=== PATIENT | female | born 1970 | race Hispanic/Latino ===

== ENCOUNTER 2024-07-07 12:56 | Emergency (ER) | payer MEDICARE, OTHER, SELFPAY ==
[2024-07-07 13:01] VITALS: BP 128/90
--- NOTE | 2024-07-07 14:46 | ED.GENMED ---
History of Present Illness
General
Chief Complaint: Musculo-Skeletal Complaint
Source: patient
Exam Limitations: none
Time Seen by Provider: 07/07/24 14:17
Nursing documentation reviewed up to this point in time: agreed with
History of Present Illness
History of Present Illness:
pt is a 53 y/o F with h/o htn, hld ,svt, clon ca
here with R elbow pain anteriorly after lifting heave 5 gallon water jug at home
she felt a pop in her AC region
she since has had a lot of pain with elbow movement
she also feels somep ain anteriorly in her shoulder
no numbness/tinglingw/eakness
no significant swelling
Past History
Past History
ED Past Medical History: Arrthythmia (SVT), HTN, NIDDM and Psychiatric
ED Past Surgical History: Cholecystectomy and Gynecological
Social History
Tobacco: Former smoker
Alcohol: None
Drug: None
Personal: Other
Living: with family
Employment: Employed
Family History
Family History: CAD and Sudden ([place] - 2 brothers)
Review of Systems
Review of Systems
Allergies reviewed?: Yes
All Other Systems: Not applicable
Phy Exam
Physical Exam
Physical Exam:
GENERAL: Alert , in no apparent distress, comfortable at rest
HEAD: NCAT
CV 2+ pulses
NEUROLOGICAL: Alert and oriented, no focal neuro deficits, , 5/5 strength, sensation intact, ambulation
SKIN: Warm and dry,
MUSCULOSKELETAL: R arm normal inspetion
compartment sfot
tenderness R ac area
no obvious marlyn deformity
painful elbow extension and pronation
PSYCH: Normal and appropriate interaction.
Course
Orders/Labs/Results
Orders:
Orders
07/07/24 13:05
CR Elbow - Right Min 3 Views Urgent
Comment:
Reason For Exam: pain, dec ROM
07/07/24 14:47
Sling Right-Treatment ONCE
Oxycodone/Acetaminophen [Percocet 5/325] 1 tablet PO NOW STA
Vital Signs
Initial and Last Documented VS:
Initial Vital Signs
Temp Pulse Resp BP Pulse Ox
36.7 C 76 16 128/90 99
07/07/24 13:01 07/07/24 13:01 07/07/24 13:01 07/07/24 13:01 07/07/24 13:01
Last Documented Vital Signs
Temp Pulse Resp BP Pulse Ox
36.7 C 76 16 128/90 99
07/07/24 13:01 07/07/24 13:01 07/07/24 13:01 07/07/24 13:01 07/07/24 13:01
MDM/Problems Addressed
Differential Diagnosis Includes:
biceps tendon rupture, ac strain
MDM/Problems Addressed:
53 y/o F was lifting a heavy 5 gallon water jug and felt pop in her anterior R elbow
she doesn't have marlyn deformity but i think she may have biceps tendon injury; she has never seen ortho so i wanted to reach out so that she can have f/u
her xray was neg, indep reviewed; she has normal neuro/vascular exam
spoke with dr. panchal who will see her in the office this week
*Critical Care Note
Total Time (30-74mins, 75-104mins- exclusive of procedures): Not Applicable
ED Attending Note
-
Portions of this chart may have been created with voice recognition software.� Occasional wrong word or��sound alike� substitutions may have occurred due to the inherent limitations of voice recognition software.
Discharge Plan
Departure
Patient Disposition: Home (Routine Discharge)
Date of Disposition: 07/07/24
Time of Disposition: 14:55
Patient with high blood pressure during this ER visit?: No
Condition: Fair
Discharge Problem:
Sprain of elbow, right
Instructions: Biceps tendinopathy
Prescriptions:
New
ibuprofen 600 mg tablet
600 mg PO Q8H PRN (Reason: Pain) Qty: 14 0RF
No Action
atorvastatin 20 MG tablet
20 mg PO DAILY
metformin 1,000 MG tablet
1,000 mg PO BID
Januvia 100 MG tablet
100 mg PO HS
lisinopril-hydrochlorothiazide 10-12.5 mg Tablet
1 tab PO DAILY
metoprolol succinate 50 mg Tablet Extended Release 24 Hr
25 mg PO BID Qty: 0 0RF
Rx Instructions:
half tablet BID- please restart this evening at usual time
omeprazole 20 mg Capsule,Delayed Release(Dr/Ec)
20 mg PO DAILY
bupropion HCl [Wellbutrin XL] 300 mg Tablet Extended Release 24 Hr
300 mg PO HS
ibuprofen 600 mg tablet
600 mg PO Q8H PRN (Reason: Pain) Qty: 14 0RF
prednisone 20 mg tablet
40 mg PO DAILY 3 Days Qty: 6 0RF
famotidine 20 mg tablet
20 mg PO BID 4 Days Qty: 8 0RF
cetirizine [Zyrtec] 10 mg tablet
10 mg PO DAILY 4 Days Qty: 4 0RF
epinephrine [EpiPen 2-Esteban] 0.3 mg/0.3 mL auto-injector
0.3 mg IM Q5-15M PRN (Reason: anaphylaxis) Qty: 2 0RF
Referrals:
Zenaida Hyde MD [Family Provider] -
Chet Panchal MD [Active] - Follow up in 2-3 days
(CALL TUESDAY MORNING FOR FOLLOW UP, DR PANCHAL CAN SEE YOU EITHER TUESDAY OR TUESDAY, THEY SHOULD HAVE YOUR INFORMATION; TELL THEM I SPOKE WITH HIM.
)
Activity Restrictions/Additional Instructions:
You may have a biceps tendon tear. Wear the sling until you see orthopedics. Take ibuprofen 600 mg 3 times a day with food to help with pain and inflammation. Take Tylenol 2-3 times a day as needed as well for pain. Ice off-and-on.
Dr. Friedman is in the office Tuesday and Tuesday and can follow-up with you. Please call Tuesday morning. He should have your name with the office staff to get you an appointment. Tell them I spoke with him.
Return to the ER for any concerns
Interventions
Interventions:
*Risk Screen - Suicide Last Done: 07/07/24 13:01
*General Assessment Last Done: 07/07/24 13:01
*Neglect/Abuse Screening Last Done: 07/07/24 15:44
ED- Fall Risk Assessment Last Done: 07/07/24 15:45
*ED COVID-19 Vaccine History Last Done: 07/07/24 13:01
*Nursing Disposition Last Done: 07/07/24 15:45
ED-Musculoskeletal Assessment Last Done: 07/07/24 15:44
Discharge Date and Time
Discharge Date/Time: 07/07/24 15:49
Print Language: PALAUAN
[2024-07-07] MEDS: PERCOCET 5/325 1 TABLET PO (15:30)
== END 2024-07-07 15:49 | disposition home or self-care (01) ==
LOC: EMR 12:56
PROVIDERS: EMERGENCY PHYSICIAN Emergency Medicine; FAMILY PHYSICIAN Family Medicine
DX: S53.401A Unspecified sprain of right elbow, initial encounter (principal); X50.0XXA Overexertion from strenuous movement or load, initial encounter; E11.9 Type 2 diabetes mellitus without complications; I10 Essential (primary) hypertension; E78.5 Hyperlipidemia, unspecified; Z90.49 Acquired absence of other specified parts of digestive tract; Z87.891 Personal history of nicotine dependence
CPT/HCPCS: 99283; 73080

== ENCOUNTER 2024-08-29 14:55 | Inpatient (IN) | payer OTHER, SELFPAY ==
[2024-08-29] VITALS (12 sets, daily range): BP systolic 94–127; BP diastolic 54–81; PULSE 86; BMI 35.1
--- NOTE | 2024-08-29 08:32 | ED.GENMED ---
History of Present Illness
General
Chief Complaint: Cold/Flu/URI Symptoms
Time Seen by Provider: 08/29/24 08:30
History of Present Illness
History of Present Illness:
TIME OF INITIAL ENCOUNTER:
HPI: Patient reportedly was positive for the flu 3 weeks ago but has been having worsening symptoms. She reports some chills, ongoing cough. She was prescribed a 'pill with liquid inside' when she was diagnosed with the flu but 'it did not help at
all'. She reports significant weakness.
EXAM:
GENERAL: Appears generally weak, she is febrile
HEENT: Slightly dry oral mucosa
CARDIOVASCULAR: No murmurs, tachycardic heart rate, regular rhythm, No chest wall tenderness
PULMONARY: For the most part breath sounds are clear however there is some faint slightly coarse breath sounds at the bases but no definite wheeze
ABDOMEN: Soft with no peritoneal signs, no tenderness
NEUROLOGIC: Excellent strength all extremities, no coordination deficits
PSYCHIATRIC: Appropriate mental status, normal insight and judgement
EXTREMITIES: Nontender, no edema, moves all extremities equally
SKIN: No rash, no lesions
NUMBER AND COMPLEXITY OF PROBLEMS ADDRESSED AT THE ENCOUNTER
� Chronic conditions affecting care: WAI on CPAP, high blood pressure, hyperlipidemia, has had SVT, diabetes, colon cancer, anxiety/depression
� Acute Exacerbation and/or Progression of Chronic Illness: This is an acute problem
� Differential Diagnosis includes: Bacterial superinfection after influenza, reactive airway disease, sepsis
AMOUNT AND/OR COMPLEXITY OF DATA TO BE REVIEWED AND ANALYZED
� I performed an independent evaluation of and my interpretation is:
EKG: Sinus, PACs, rate of 97, nonspecific ST abnormality
CT:
X-rays: I personally viewed the chest x-ray and suspect at least questionable density at the right middle lobe
Laboratory Studies: White count 12.4, hemoglobin 10.1, sodium 127, normal renal function, lactic normal
Other:
� Review of other/old records: The patient was seen here 2 months ago with a right elbow sprain, she also was seen here multiple times in 2021 with SVT
� Clinical information was obtained by an independent historian: I spoke to relative at bedside
� Prescriptions/Medications Considered but not given:
� Further testing considered but not performed:
RISK OF COMPLICATIONS AND/OR MORBIDITY OR MORTALITY OF PATIENT MANAGEMENT
� Social determinants of health affecting care: Lives at home
� Discussion with other providers: Hospitalist, Dr. Bassett at 10:26 AM for admission
� Escalation of care including admission/observation vs risk of discharge considered: As she reports chills and is tachycardic with worsening symptoms and weakness, blood culture/lactic acid obtained. Will check additional labs
and give IV fluids as well as a DuoNeb. She reports worsening symptoms after diagnosed with the flu 3 weeks ago. Sodium is only 127�we did give IV fluids.
ANY OTHER UPDATES:
10:20 AM: The patient reports only minimal improvement after nebs, Motrin, IV fluids. Chest x-ray per radiology shows signs of multilobar pneumonia. Sodium is also low. Will plan admission to hospital for IV antibiotics.
Past History
Past History
ED Past Medical History: Arrthythmia (SVT), HTN, NIDDM and Psychiatric
ED Past Surgical History: Cholecystectomy and Gynecological
Social History
Tobacco: Former smoker
Alcohol: None
Drug: None
Personal: Other
Living: with family
Employment: Employed
Family History
Family History: CAD and Sudden ([place] - 2 brothers)
Phy Exam
Physical Exam
Physical Exam:
See HPI
Course
Orders/Labs/Results
Orders:
Orders
08/29/24 08:16
Electrocardiogram (*1) Urgent
Reason for Study: Shortness of Breath
08/29/24 08:17
EKG- Treatment ONCE
Chest [CR Chest - 2 Views ] Urgent
Comment:
Reason For Exam: SOB, cough
08/29/24 08:40
0.9% Sodium Chloride 1000 ml [Nss] 1,000 ml IV BOLUS
Ipratropium/Albuterol Sulfate [Duoneb] 3 ml INH R NOW STA
08/29/24 08:52
Basic Metabolic Panel Urgent
COVID-19 Antigen Urgent
Source: Nasal Swab
Complete Blood Count/With Diff Urgent
Lactic Acid Q4H
Comment: CANCEL 2nd LACTIC ACID IF 1st LACTIC ACID IS LESS THAN 2
Blood Culture Q30M
TANVIR Source: Blood/Venous
Specimen Description:
Blood Culture Q30M
TANVIR Source: Blood/Venous
Specimen Description:
Influenza A+B Rapid Molecular Urgent
TANVIR Source: Nasal Swab
Specimen Description:
08/29/24 08:54
Ibuprofen [Motrin] 800 mg PO NOW STA
08/29/24 10:18
Azithromycin 500 mg/250 ml [Zithromax Infusion] 500 mg in 250 ml IV NOW
CefTRIAXone [Rocephin] 1,000 mg IV NOW STA
08/29/24 12:45
Lactic Acid Q4H
Comment: CANCEL 2nd LACTIC ACID IF 1st LACTIC ACID IS LESS THAN 2
Abnormal Lab Results
08/29/24
08:52
WBC 12.4 H 10^3/uL
(4.8-10.8)
Hgb 10.1 L g/dL
(12.0-16.0)
Hct 31.9 L %
(37.0-47.0)
MCV 75.6 L fL
(81.0-99.0)
MCH 23.9 L pg
(27.0-31.0)
MCHC 31.7 L g/dL
(33.0-37.0)
RDW 17.9 H %
(11.5-14.5)
Plt Count 442 H 10^3/uL
(130-400)
Abs Immat Gran (auto) 0.1 H 10^3/uL
(0-0.05)
Absolute Neuts (auto) 9.4 H 10^3/uL
(1.4-6.5)
Absolute Monos (auto) 1.1 H 10^3/uL
(0.1-0.6)
Immature Gran % 0.6 H %
(0-0.5)
Neutrophils % 75.7 H %
(42.2-75.2)
Lymphocytes % 14.2 L %
(20.5-51.1)
Sodium 127 L mmol/L
(135-145)
Chloride 87 L mmol/L
(98-107)
Creatinine 0.5 L mg/dL
(0.6-1.0)
Glucose 145 H mg/dl
(70-99)
08/29/24 08:52
08/29/24 08:52
Vital Signs
Initial and Last Documented VS:
Initial Vital Signs
Temp Pulse Resp BP Pulse Ox
37.6 C 105 18 127/81 94
08/29/24 08:13 08/29/24 08:13 08/29/24 08:13 08/29/24 08:13 08/29/24 08:13
Last Documented Vital Signs
Temp Pulse Resp BP Pulse Ox
37.3 C 105 18 112/71 93
08/29/24 10:25 08/29/24 08:13 08/29/24 08:13 08/29/24 09:16 08/29/24 09:45
*Critical Care Note
Total Time (30-74mins, 75-104mins- exclusive of procedures): Not Applicable
ED Attending Note
-
Portions of this chart may have been created with voice recognition software.� Occasional wrong word or��sound alike� substitutions may have occurred due to the inherent limitations of voice recognition software.
Discharge Plan
Departure
Patient Disposition: Admit
Date of Disposition: 08/29/24
Time of Disposition: 10:21
Presentation/result/management discussed w/ accepting MD/DO: Hospitalist
Discharge Problem:
Pneumonia
Prescriptions:
No Action
atorvastatin 20 MG tablet
20 mg PO DAILY
metformin 1,000 MG tablet
1,000 mg PO BID
Januvia 100 MG tablet
100 mg PO HS
lisinopril-hydrochlorothiazide 10-12.5 mg Tablet
1 tab PO DAILY
metoprolol succinate 50 mg Tablet Extended Release 24 Hr
25 mg PO BID Qty: 0 0RF
Rx Instructions:
half tablet BID- please restart this evening at usual time
omeprazole 20 mg Capsule,Delayed Release(Dr/Ec)
20 mg PO DAILY
bupropion HCl [Wellbutrin XL] 300 mg Tablet Extended Release 24 Hr
300 mg PO HS
ibuprofen 600 mg tablet
600 mg PO Q8H PRN (Reason: Pain) Qty: 14 0RF
prednisone 20 mg tablet
40 mg PO DAILY 3 Days Qty: 6 0RF
famotidine 20 mg tablet
20 mg PO BID 4 Days Qty: 8 0RF
cetirizine [Zyrtec] 10 mg tablet
10 mg PO DAILY 4 Days Qty: 4 0RF
epinephrine [EpiPen 2-Esteban] 0.3 mg/0.3 mL auto-injector
0.3 mg IM Q5-15M PRN (Reason: anaphylaxis) Qty: 2 0RF
ibuprofen 600 mg tablet
600 mg PO Q8H PRN (Reason: Pain) Qty: 14 0RF
Referrals:
Zenaida Hyde MD [Family Provider] -
Interventions
Interventions:
*Risk Screen - Suicide Last Done: 08/29/24 08:13
*General Assessment Last Done: 08/29/24 08:13
*Neglect/Abuse Screening Last Done: 08/29/24 08:13
Discharge Date and Time
Print Language: CHINESE
[2024-08-29] MEDS: MOTRIN 800 MG PO (09:08)
[2024-08-29] MEDS: NSS 1000 IV ×2 (09:08→15:00)
[2024-08-29] MEDS: DUONEB 3 ML INH ×2 (09:08→15:33)
[2024-08-29 09:14] LABS: % Basophils 0.2 % (0-2); % Eosinophils 0.1 % (0-6); % Immature Granulocytes 0.6 % (0-0.5); % Lymphocytes 14.2 % (20.5-51.1); % Monocytes 9.2 % (1.7-9.3); % Neutrophils 75.7 % (42.2-75.2); Absolute Immature Granulocytes 0.1 10^3/uL (0-0.05); Absolute Lymphocytes 1.8 10^3/uL (1.2-3.4); Absolute Monocytes 1.1 10^3/uL (0.1-0.6); Absolute Neutrophils 9.4 10^3/uL (1.4-6.5); Hematocrit 31.9 % (37.0-47.0); Hemoglobin 10.1 g/dL (12.0-16.0); Mean Corp Hgb Conc. 31.7 g/dL (33.0-37.0); Mean Corpuscular Hgb 23.9 pg (27.0-31.0); Mean Corpuscular Volume 75.6 fL (81.0-99.0); Mean Platelet Volume 8.9 fL (7.4-10.4); Nucleated Red Blood Cells % 0 %; Platelet Count 442 10^3/uL (130-400); Red Blood Cell Count 4.22 10^6/uL (4.20-5.40); Red Cell Dist. Width 17.9 % (11.5-14.5); White Blood Cell Count 12.4 10^3/uL (4.8-10.8)
[2024-08-29 09:23] LABS: Blood Urea Nitrogen 9 mg/dl (7-17); COVID-19 Antigen Negative (Negative); Calcium 8.7 mg/dl (8.4-10.2); Carbon Dioxide 28 mmol/L (22-30); Chloride 87 mmol/L (98-107); Glucose 145 mg/dl (70-99); Potassium 3.7 mmol/L (3.5-5.1); Sodium 127 mmol/L (135-145); eGFR > 60.00
[2024-08-29 09:30] LABS: Lactic Acid 1.2 mmol/L (0.7-2.0)
--- NOTE | 2024-08-29 10:38 | HPS.HSE ---
Family Physician
-
Family Physician: Zenaida Hyde
Chief Complaint
-
Coughing
History of Present Illness
54F HTN NIDDM Obesity WAI on CPAP hx SVT s/p ablation p/w progression exertional dyspnea coughing general malaise chills appetite loss for the past few days. Prior to worsening of symptoms patient was diagnosed with Flu approx 3 weeks ago. Sinus
Tachy Mild Leukocytosis CXR concerning for multifocal pneumonia. No significant hypotension or lactic acidosis.
Medical History
Past Medical History
Past Medical History: Reports Other (as above)
Past Surgical History: Reports Other (as above)
Social History
Tobacco: Non-smoker
Alcohol: None
Drug: None
Living: With Family
Employment: Employed
Family History
Family History: Not pertinent (reviewed)
Allergies / Home Medications
Allergies reflects when Allergies were last updated in [facility].
Home Medications with original date entered in [facility]
Allergy/Medication List:
Allergies
Allergy/AdvReac Type Severity Reaction Status Date / Time
shellfish derived Allergy throat Verified 08/29/24 08:13
swelling,
rash
Home Medications
atorvastatin 20 mg tablet 20 mg PO HS 02/11/21
metformin 1,000 mg tablet 1,000 mg PO BID 02/11/21
lisinopril 10 mg-hydrochlorothiazide 12.5 mg tablet 1 tab PO DAILY 01/13/22
famotidine 20 mg tablet 20 mg PO BID 4 days #8 tabs 04/20/23
albuterol sulfate 90 mcg/actuation aerosol inhaler 1 puff inhalation R Q6HPRN PRN sob 08/29/24
guaifenesin 600 mg tablet, extended release 12 hr (Mucinex) 600 mg PO [id number] PRN cough 08/29/24
ibuprofen 600 mg tablet 600 mg PO Q6HPRN PRN Pain 08/29/24
loperamide 2 mg tablet 2 mg PO QIDPRN PRN diarrhea 08/29/24
metoprolol tartrate 25 mg tablet 25 mg PO BID 08/29/24
omeprazole 40 mg capsule,delayed release 40 mg PO DAILY 08/29/24
ondansetron 4 mg disintegrating tablet 4 mg PO Q8HPRN PRN nausea,vomitting 08/29/24
semaglutide 0.25 mg or 0.5 mg (2 mg/3 mL) subcutaneous pen injector (Ozempic) 0.25 mg SC MO 08/29/24
sertraline 50 mg tablet 50 mg PO HS 08/29/24
Review of Systems
-
A 12 point ROS was completed and negative except as noted: Yes
Constitutional: Reports Other (as below)
Physical Exam
Vital Signs
Vital Signs
Temp Pulse Resp BP Pulse Ox
99.1 F 105 18 112/71 93
08/29/24 10:25 08/29/24 08:13 08/29/24 08:13 08/29/24 09:16 08/29/24 09:45
Physical Exam
General: Other (as below)
Laboratory Results
-
08/29/24 08:52
08/29/24 08:52
Laboratory Results
Lactic Acid 1.2 mmol/L (0.7-2.0) 08/29/24 08:52
Impression/Plan
-
ROS
General: Reports chills general malaise Denies fever night sweats unexpected weight loss
Neuro: Denies seizure shaking loss of consciousness dizziness vertigo
Psych: denies depression hallucinations confusion manic episodes
Endocrine: Denies polyuria polydipsia polyphagia heat/cold intolerance
HEENT: Denies blindness visual disturbances epistaxis
Pulmonary: reports productive cough dyspnea on exertion
Cardiovascular: denies chest pain palpitations leg swelling
Hematology: denies signs symptoms of anemia easy bruising/bleeding
Gastrointestinal: denies nausea vomiting diarrhea constipation hematemesis hematochezia melena
Genito-Urinary: denies retention incontinence dysuria
Musculoskeletal: reports joint pain weakness
Dermatology: denies rash laceration bruising
Physical Exam
General: No pallor, cyanosis, or jaundice.
HEENT: Throat clear. PERRLA Normocephalic atraumatic
NECK: Supple. No JVD Carotid Bruits
RESPIRATORY: Lungs clear to auscultation. No crackles wheezes stridor
CVS: S1, S2 sinus tachy. No murmur, rub or gallop.
ABDOMEN: Soft, non-tender. No distension. BS+/normal.
EXTREMITIES: No peripheral cyanosis or edema. Lower ext tattoo noted
INDUSTRIAL ROBOTICS MECHANIC: AOx3 conversant coherent
IMPRESSION:
54F HTN GERD NIDDM Obesity depression WAI on CPAP hx SVT s/p ablation p/w progression exertional dyspnea coughing general malaise chills appetite loss for the past few days. Prior to worsening of symptoms patient was diagnosed with Flu approx 3
weeks ago. Sinus Tachy Mild Leukocytosis CXR concerning for multifocal pneumonia. No significant hypotension or lactic acidosis. Currently COVID Flu neg. Admitted for further management/treatment Pneumonia.
PLAN:
#Pneumonia
cont IV ceftriaxone azithromycin
scheduled mucinex and prn robitussin
cepacol prn sore throat
trend wbc, monitor temp
follow blood and sputum cultures
PRN Tylenol, Ibuprofen
#Hyponatremia
likely d/t poor oral intake, potentially exacerbated by home HCTZ and Sertraline
cont IVF NS
HTN
hx SVT s/p ablation
monitor on Telemetry
HCTZ on hold as above
home Lisinopril and metoprolol with hold d/t holding parameters
NIDDM
hold home Metformin for now d/t poor appetite
sliding scale
update A1c
monitor and titrate insulin regimen as necessary.
WAI on CPAP
Obesity
cont CPAP bedtome
Depression/Insomnia
cont home Sertraline (will consider holding if Na does not improve with IV NS and hold HCTZ as above)
start low dose melatonin bedtime
GERD
cont PPI
DVT ppx scd
Full Code
I spent a total of 77 minutes with the patient or on the floor. More than 50% of this time involved counseling and coordination of care.
[2024-08-29] MEDS: ZITHROMAX INFUSION 250 IV (11:03)
[2024-08-29] MEDS: ROCEPHIN 1000 MG IV (11:03)
[2024-08-29] MEDS: TYLENOL 650 MG PO ×2 (14:59→20:13)
[2024-08-29] MEDS: MOTRIN 600 MG PO (17:38)
[2024-08-29 17:44] LABS: Glucose - Point of Care 151 mg/dl (70-99)
[2024-08-29] MEDS: NOVOLOG FLEXPEN-LOW RESISTANCE 1 UNITS SC (17:47)
[2024-08-29] MEDS: ROBITUSSIN 200 MG PO ×2 (18:06→23:47)
[2024-08-29] MEDS: LOPRESSOR PO (20:04)
[2024-08-29] MEDS: ANESTHETIC LOZENGE 1 LOZENGE PO (20:05)
[2024-08-29] MEDS: MUCINEX 600 MG PO (20:12)
[2024-08-29] MEDS: PEPCID 20 MG PO (20:12)
[2024-08-29] MEDS: MELATONIN 3 MG PO (20:13)
[2024-08-29] MEDS: LIPITOR 20 MG PO (20:13)
[2024-08-29] MEDS: ZOLOFT 50 MG PO (20:13)
[2024-08-29 21:26] LABS: Glucose - Point of Care 189 mg/dl (70-99)
[2024-08-30 03:14] VITALS: BP 99/65
[2024-08-30] MEDS: DUONEB 3 ML INH (03:39)
[2024-08-30] MEDS: NSS 1000 IV (05:12)
[2024-08-30] MEDS: TYLENOL 650 MG PO ×3 (06:16→17:28)
[2024-08-30] MEDS: ROBITUSSIN 200 MG PO ×4 (06:17→21:52)
[2024-08-30 06:56] LABS: Hematocrit 29.8 % (37.0-47.0); Hemoglobin 9.3 g/dL (12.0-16.0); Mean Corp Hgb Conc. 31.2 g/dL (33.0-37.0); Platelet Count 446 10^3/uL (130-400); Red Blood Cell Count 3.87 10^6/uL (4.20-5.40); Red Cell Dist. Width 18.2 % (11.5-14.5); White Blood Cell Count 11.4 10^3/uL (4.8-10.8)
[2024-08-30 07:37] LABS: Blood Urea Nitrogen 4 mg/dl (7-17); Calcium 8.3 mg/dl (8.4-10.2); Carbon Dioxide 30 mmol/L (22-30); Chloride 97 mmol/L (98-107); Estimated Creatinine Clearance 113 ml/min; Glucose 146 mg/dl (70-99); Magnesium 1.6 mg/dl (1.6-2.3); Phosphorus 3.2 mg/dl (2.5-4.5); Sodium 134 mmol/L (135-145); eGFR > 60.00
[2024-08-30 07:39] VITALS: BP 104/66
[2024-08-30 07:48] LABS: Glucose - Point of Care 145 mg/dl (70-99)
--- NOTE | 2024-08-30 07:59 | W.PN.HOSP.TC ---
Today's Communication/Plan
-
cont abx
incentive spirometer VEST therapy
wean O2 supplementation as tolerated
IVF completed
Assessment / Plan
Assessment / Plan
Physical Exam
General: No pallor, cyanosis, or jaundice.
HEENT: Throat clear. PERRLA Normocephalic atraumatic
NECK: Supple. No JVD Carotid Bruits
RESPIRATORY: mild crackles on ausculation
CVS: S1, S2 sinus tachy. No murmur, rub or gallop.
ABDOMEN: Soft, non-tender. No distension. BS+/normal.
EXTREMITIES: No peripheral cyanosis or edema. Lower ext tattoo noted
DIRECTOR PATIENT ACCOUNTING: AOx3 conversant coherent
IMPRESSION:
54F HTN GERD NIDDM Obesity depression WAI on CPAP hx SVT s/p ablation p/w progression exertional dyspnea coughing general malaise chills appetite loss for the past few days. Prior to worsening of symptoms patient was diagnosed with Flu approx 3
weeks ago. Sinus Tachy Mild Leukocytosis CXR concerning for multifocal pneumonia. No significant hypotension or lactic acidosis. Currently COVID Flu neg. Admitted for further management/treatment Pneumonia.
PLAN:
#Pneumonia
cont IV ceftriaxone azithromycin
scheduled mucinex and prn robitussin
cepacol prn sore throat
trend wbc, monitor temp
follow blood and sputum cultures
PRN Tylenol, Ibuprofen
incentive spirometer VEST therapy
#Hyponatremia
likely d/t poor oral intake, potentially exacerbated by home HCTZ and Sertraline
resolved with IVF NS
patient tolerating diet, IVF completed
HTN
hx SVT s/p ablation
monitor on Telemetry
HCTZ on hold as above
home Lisinopril and metoprolol with holding parameters
NIDDM
hold home Metformin for now d/t poor appetite
sliding scale
updated A1c 7.7
monitor and titrate insulin regimen as necessary.
WAI on CPAP
Obesity
cont CPAP bedtome
Depression/Insomnia
cont home Sertraline
melatonin bedtime
GERD
cont PPI
DVT ppx scd
Full Code
I spent a total of 50 minutes with the patient or on the floor. More than 50% of this time involved counseling and coordination of care.
Anticipated Discharge: 24 - 48 hours
Subjective/Interval History
-
Date of Service: August 30, 2024
Reports some improvement in symptoms. General malaise persists. Able to tolerate diet.
Objective Data
-
Labs:
Laboratory Results
08/30/24
05:49
WBC 11.4 H
Hgb 9.3 L
Hct 29.8 L
Plt Count 446 H
Sodium 134 L
Potassium 4.0
Chloride 97 L
Carbon Dioxide 30
BUN 4 L
Creatinine 0.4 L
Glucose 146 H
Calcium 8.3 L
Vital Signs:
Vital Signs
Temp Pulse Resp BP Pulse Ox
98.2 F 96 20 99/65 95
08/30/24 03:14 08/30/24 03:44 08/30/24 03:44 08/30/24 03:14 08/30/24 03:14
I&O
08/29/24 08/30/24 08/31/24
06:59 06:59 06:59
Intake Total 480 / 480
Balance 480 / 480
[2024-08-30] MEDS: NOVOLOG FLEXPEN-LOW RESISTANCE SC (08:39)
[2024-08-30] MEDS: PROTONIX 40 MG PO (08:40)
[2024-08-30] MEDS: PEPCID 20 MG PO ×2 (08:40→20:29)
[2024-08-30] MEDS: ZITHROMAX INFUSION 250 IV (08:40)
[2024-08-30] MEDS: MUCINEX 600 MG PO ×2 (08:40→20:29)
[2024-08-30] MEDS: LOPRESSOR PO (08:41)
[2024-08-30] MEDS: ZESTRIL PO (08:44)
[2024-08-30] MEDS: ROCEPHIN 1000 MG IV (08:47)
[2024-08-30] MEDS: LASIX 20 MG IV (10:44)
[2024-08-30 11:16] LABS: Glycohemoglobin (HgbA1c) 7.7 % (4.0-5.6)
[2024-08-30 11:51] VITALS: BP 104/70
[2024-08-30 11:53] LABS: Glucose - Point of Care 173 mg/dl (70-99)
[2024-08-30] MEDS: NOVOLOG FLEXPEN-LOW RESISTANCE 1 UNITS SC ×2 (11:54→17:24)
[2024-08-30 15:02] LABS: NT-proBNP 338 pg/ml
--- NOTE | 2024-08-30 15:02 | CM ---
Alert awake oriented patient who lives with her mom Lien who lives in a 2 story home with 1 step to enter and 14 to bed bathroom. She is independent in driving and in all activities of daily living.She has CPAP and cane at home Offered VN she
declined.
Never had VN/SNF
Pharmacy [facility]
PCP Dr Hyde
PLAN Home no needs
[2024-08-30 15:47] VITALS: BP 101/64
[2024-08-30 16:34] LABS: Glucose - Point of Care 161 mg/dl (70-99)
[2024-08-30 19:33] VITALS: BP 114/69
[2024-08-30] MEDS: MOTRIN 600 MG PO (20:28)
[2024-08-30] MEDS: LIPITOR 20 MG PO (20:29)
[2024-08-30] MEDS: LOPRESSOR 25 MG PO (20:29)
[2024-08-30] MEDS: ZOLOFT 50 MG PO (20:29)
[2024-08-30] MEDS: MELATONIN 3 MG PO (20:29)
[2024-08-30 21:14] LABS: Glucose - Point of Care 178 mg/dl (70-99)
[2024-08-30 23:21] VITALS: BP 99/59
[2024-08-31] VITALS (9 sets, daily range): BP systolic 97–134; BP diastolic 54–77; PULSE 69–71; O2SAT 94; BMI 31.4
[2024-08-31] MEDS: TYLENOL 650 MG PO ×2 (01:18→16:13)
[2024-08-31] MEDS: ROBITUSSIN 200 MG PO ×4 (05:34→21:38)
[2024-08-31] MEDS: DUONEB 3 ML INH ×2 (06:11→18:44)
--- NOTE | 2024-08-31 06:22 | W.PN.HOSP.TC ---
Today's Communication/Plan
-
IV abx de-escalated to Augmentin
Tessalon perle prn
Fluid restriction
Repelete Mg
Assessment / Plan
Assessment / Plan
Physical Exam
General: No pallor, cyanosis, or jaundice.
HEENT: Throat clear. PERRLA Normocephalic atraumatic
NECK: Supple. No JVD Carotid Bruits
RESPIRATORY: clear to auscultation b/l
CVS: S1, S2 sinus tachy. No murmur, rub or gallop.
ABDOMEN: Soft, non-tender. No distension. BS+/normal.
EXTREMITIES: No peripheral cyanosis or edema. Lower ext tattoo noted
DIRECTOR LIFE SCIENCES: AOx3 conversant coherent
IMPRESSION:
54F HTN GERD NIDDM Obesity depression AWI on CPAP hx SVT s/p ablation p/w progression exertional dyspnea coughing general malaise chills appetite loss for the past few days. Prior to worsening of symptoms patient was diagnosed with Flu approx 3
weeks ago. Sinus Tachy Mild Leukocytosis CXR concerning for multifocal pneumonia. No significant hypotension or lactic acidosis. Currently COVID Flu neg. Admitted for further management/treatment Pneumonia.
PLAN:
#Pneumonia due to Haemophilus influenzae with beta lactamase (sputum culture positive)
completed 3 days IV ceftriaxone azithromycin, de-escalated to Augmentin planned for total 5 days abx
scheduled mucinex and prn robitussin, tessalon
cepacol prn sore throat
trend wbc, monitor temp
follow blood and sputum cultures
PRN Tylenol, Ibuprofen
incentive spirometer VEST therapy
#Hyponatremia
likely d/t poor oral intake, potentially exacerbated by home HCTZ and Sertraline
resolved with IVF NS
patient tolerating diet, IVF completed
hyponatremia high 120s later re-occurred
Fluid restriction
HTN
hx SVT s/p ablation
monitor on Telemetry
HCTZ on hold as above
home Lisinopril and metoprolol with holding parameters
NIDDM
hold home Metformin for now d/t poor appetite
sliding scale
updated A1c 7.7
monitor and titrate insulin regimen as necessary.
WAI on CPAP
Obesity
cont CPAP bedtime
Depression/Insomnia
cont home Sertraline
melatonin bedtime
GERD
cont PPI
Hypomagnesemia
monitor and replete as necessary
PT/OT appreciated no needs
DVT ppx scd
Full Code
I spent a total of 40 minutes with the patient or on the floor. More than 50% of this time involved counseling and coordination of care.
Anticipated Discharge: Within 24 hours
Subjective/Interval History
-
Date of Service: August 31, 2024
cough persists. Otherwise patient reports feeling significantly improved. Stable respiratory status on room air.
Objective Data
-
Labs:
Laboratory Results
08/31/24
05:31
WBC Pending
Hgb Pending
Hct Pending
Plt Count Pending
Sodium Pending
Potassium Pending
Chloride Pending
Carbon Dioxide Pending
BUN Pending
Creatinine Pending
Glucose Pending
Calcium Pending
Vital Signs:
Vital Signs
Temp Pulse Resp BP Pulse Ox
98.1 F 84 16 134/77 96
08/31/24 03:12 08/31/24 06:13 08/31/24 06:13 08/31/24 03:12 08/31/24 06:13
I&O
08/29/24 08/30/24 08/31/24
06:59 06:59 06:59
Intake Total 480 / 480 680 / 680
Output Total 600 / 600
Balance 480 / 480 80 / 80
[2024-08-31 06:26] LABS: Hemoglobin 8.4 g/dL (12.0-16.0); Mean Corp Hgb Conc. 31.1 g/dL (33.0-37.0); Mean Corpuscular Hgb 24.1 pg (27.0-31.0); Mean Corpuscular Volume 77.4 fL (81.0-99.0); Mean Platelet Volume 8.9 fL (7.4-10.4); Platelet Count 417 10^3/uL (130-400); Red Blood Cell Count 3.49 10^6/uL (4.20-5.40); Red Cell Dist. Width 17.9 % (11.5-14.5); White Blood Cell Count 9.3 10^3/uL (4.8-10.8)
[2024-08-31 06:52] LABS: Blood Urea Nitrogen 6 mg/dl (7-17); Calcium 8.1 mg/dl (8.4-10.2); Carbon Dioxide 30 mmol/L (22-30); Chloride 90 mmol/L (98-107); Estimated Creatinine Clearance 113 ml/min; Glucose 160 mg/dl (70-99); Magnesium 1.5 mg/dl (1.6-2.3); Phosphorus 2.8 mg/dl (2.5-4.5); Potassium 3.7 mmol/L (3.5-5.1); Sodium 128 mmol/L (135-145); eGFR > 60.00
[2024-08-31 08:01] LABS: Glucose - Point of Care 172 mg/dl (70-99)
[2024-08-31] MEDS: NOVOLOG FLEXPEN-LOW RESISTANCE 1 UNITS SC ×2 (08:19→17:36)
[2024-08-31] MEDS: PROTONIX 40 MG PO (08:20)
[2024-08-31] MEDS: MUCINEX 600 MG PO ×2 (08:20→21:31)
[2024-08-31] MEDS: ZESTRIL PO (08:20)
[2024-08-31] MEDS: LOPRESSOR 25 MG PO (08:21)
[2024-08-31] MEDS: PEPCID 20 MG PO ×3 (08:21→21:31)
[2024-08-31] MEDS: ROCEPHIN 1000 MG IV (08:25)
[2024-08-31] MEDS: ZITHROMAX INFUSION 250 IV (08:25)
[2024-08-31] MEDS: STERILE WATER FOR INJECTION 10 ML IV (08:25)
--- NOTE | 2024-08-31 10:05 | CM ---
Weaned oxygen to 1 liter Pox 97%.
Vest therapy.
Maintained on IV antibiotics.
Offered VN she declined .
PLAN Home no needs Watch for oxygen needs
[2024-08-31 11:58] LABS: Glucose - Point of Care 201 mg/dl (70-99)
[2024-08-31] MEDS: NOVOLOG FLEXPEN-LOW RESISTANCE 2 UNITS SC (12:17)
[2024-08-31] MEDS: MAGNESIUM SULFATE 100 IV (13:36)
[2024-08-31] MEDS: LASIX 20 MG PO (13:37)
[2024-08-31] MEDS: FLUSH (NSS) 2 FLUSH IV (13:38)
[2024-08-31] MEDS: TESSALON PERLES 200 MG PO (13:40)
--- NOTE | 2024-08-31 15:33 | PN.CDI ---
CDI
- -
CDI:
Physician Documentation Request
Admit Date: 08/29/24 14:55
Dear Doctor Jeannine
Patient is being treated for pneumonia.
Sputum culture is positive for Haemophilus influenzae
Please clarify the relationship between these conditions:
Yes, pneumonia is due to Haemophilus influenza
No pneumonia is due to Haemophilus influenza
Unable to determine
Use of terms such as suspected, likely, concern for, or probable (associated with a specific diagnosis that is being evaluated, monitored, or treated as if it exists) are acceptable and can be coded in the inpatient setting, when documented at the
time of discharge.
Thank you,
July Gamez RN, BSN
CDI Specialist
tiger text
Please use your independent medical judgment in providing your response.
[2024-08-31 16:37] LABS: Glucose - Point of Care 199 mg/dl (70-99)
[2024-08-31] MEDS: LOPRESSOR PO (21:30)
[2024-08-31] MEDS: AUGMENTIN 875 MG/125 MG 1 TABLET PO (21:30)
[2024-08-31] MEDS: ZOLOFT 50 MG PO (21:31)
[2024-08-31] MEDS: LIPITOR 20 MG PO (21:31)
[2024-08-31] MEDS: MELATONIN 3 MG PO (21:31)
[2024-08-31 21:40] LABS: Glucose - Point of Care 232 mg/dl (70-99)
[2024-09-01 03:34] VITALS: BP 116/73
[2024-09-01] MEDS: TYLENOL 650 MG PO ×2 (05:42→19:58)
[2024-09-01 06:00] VITALS: BMI 30.9
--- NOTE | 2024-09-01 07:11 | W.PN.HOSP.TC ---
Today's Communication/Plan
-
duonebs scheduled and prn (eventual discontinuation neb tx and switch to Ventolin inhaler prn)
40 mg Lasix PO once
cont abx
likely discharge home tomorrow if cont to improve
Assessment / Plan
Assessment / Plan
Physical Exam
General: No pallor, cyanosis, or jaundice.
HEENT: Throat clear. PERRLA Normocephalic atraumatic
NECK: Supple. No JVD Carotid Bruits
RESPIRATORY: crackles on auscultation
CVS: S1, S2 sinus tachy. No murmur, rub or gallop.
ABDOMEN: Soft, non-tender. No distension. BS+/normal.
EXTREMITIES: No peripheral cyanosis or edema. Lower ext tattoo noted
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
IMPRESSION:
54F HTN GERD NIDDM Obesity depression WAI on CPAP hx SVT s/p ablation p/w progression exertional dyspnea coughing general malaise chills appetite loss for the past few days. Prior to worsening of symptoms patient was diagnosed with Flu approx 3
weeks ago. Sinus Tachy Mild Leukocytosis CXR concerning for multifocal pneumonia. No significant hypotension or lactic acidosis. Currently COVID Flu neg. Admitted for further management/treatment Pneumonia.
PLAN:
#Pneumonia due to Haemophilus influenzae with beta lactamase (sputum culture positive)
completed 3 days IV ceftriaxone azithromycin, de-escalated to Augmentin planned for total 5 days abx
scheduled mucinex and prn robitussin, tessalon
cepacol prn sore throat
trend wbc, monitor temp
follow blood and sputum cultures
PRN Tylenol, Ibuprofen
incentive spirometer VEST therapy
Duoneb R QID and prn (eventual dc nebulizer treatments and switch to Ventolin inhaler prn)
Home Oxygen Assessment appreciated no need
Likely Iatrogenic Fluid overload
-crackles on auscultation
-PO lasix given, monitor response
#Hyponatremia
likely d/t poor oral intake, potentially exacerbated by home HCTZ and Sertraline
resolved with IVF NS
patient tolerating diet, IVF completed
hyponatremia high 120s later re-occurred
Fluid restriction loosened with improvement in Na
HTN
hx SVT s/p ablation
monitor on Telemetry
HCTZ on hold as above
home Lisinopril and metoprolol with holding parameters
NIDDM
hold home Metformin for now d/t poor appetite
sliding scale
updated A1c 7.7
monitor and titrate insulin regimen as necessary.
WAI on CPAP
Obesity
cont CPAP bedtime
Depression/Insomnia
cont home Sertraline
melatonin bedtime
GERD
cont PPI
Hypomagnesemia
monitor and replete as necessary
PT/OT appreciated no needs
DVT ppx scd
Full Code
I spent a total of 40 minutes with the patient or on the floor. More than 50% of this time involved counseling and coordination of care.
Anticipated Discharge: Within 24 hours
Subjective/Interval History
-
Date of Service: September 01, 2024
Patient improved but remains symptomatic intermittently requiring oxygen albeit low dose 1L. Otherwise no acute distress. sitting up comfortably in chair. stable respiratory status on room air at rest.
Objective Data
-
Labs:
Laboratory Results
09/01/24
06:00
WBC Pending
Hgb Pending
Hct Pending
Plt Count Pending
Sodium Pending
Potassium Pending
Chloride Pending
Carbon Dioxide Pending
BUN Pending
Creatinine Pending
Glucose Pending
Calcium Pending
Vital Signs:
Vital Signs
Temp Pulse Resp BP Pulse Ox
97.6 F 67 22 116/73 95
09/01/24 03:34 09/01/24 03:34 09/01/24 03:34 09/01/24 03:34 09/01/24 03:34
I&O
08/31/24 09/01/24 09/02/24
06:59 06:59 06:59
Intake Total 2120 / 2120 1310 / 1310
Output Total 600 / 600
Balance 1520 / 1520 1310 / 1310
[2024-09-01 07:31] VITALS: BP 114/70
[2024-09-01 08:03] LABS: Glucose - Point of Care 183 mg/dl (70-99)
[2024-09-01 08:25] LABS: Hematocrit 29.4 % (37.0-47.0); Hemoglobin 9.2 g/dL (12.0-16.0); Mean Corp Hgb Conc. 31.3 g/dL (33.0-37.0); Mean Corpuscular Volume 76.8 fL (81.0-99.0); Platelet Count 500 10^3/uL (130-400); Red Blood Cell Count 3.83 10^6/uL (4.20-5.40); White Blood Cell Count 7.9 10^3/uL (4.8-10.8)
[2024-09-01 09:09] LABS: Blood Urea Nitrogen 6 mg/dl (7-17); Calcium 8.4 mg/dl (8.4-10.2); Carbon Dioxide 30 mmol/L (22-30); Chloride 97 mmol/L (98-107); Estimated Creatinine Clearance 106 ml/min; Glucose 172 mg/dl (70-99); Magnesium 2.1 mg/dl (1.6-2.3); Phosphorus 2.7 mg/dl (2.5-4.5); Potassium 4.2 mmol/L (3.5-5.1); Sodium 133 mmol/L (135-145); eGFR > 60.00
[2024-09-01] MEDS: PROTONIX 40 MG PO (09:19)
[2024-09-01] MEDS: NOVOLOG FLEXPEN-LOW RESISTANCE 1 UNITS SC ×2 (09:19→18:20)
[2024-09-01] MEDS: AUGMENTIN 875 MG/125 MG 1 TABLET PO ×2 (09:19→19:54)
[2024-09-01] MEDS: ZESTRIL PO (09:21)
[2024-09-01] MEDS: LOPRESSOR 25 MG PO ×2 (09:22→19:54)
[2024-09-01] MEDS: MUCINEX 600 MG PO ×2 (09:22→19:54)
[2024-09-01] MEDS: PEPCID 20 MG PO ×2 (09:23→19:54)
[2024-09-01] MEDS: ROBITUSSIN 200 MG PO ×2 (11:10→19:54)
[2024-09-01] MEDS: DUONEB 3 ML INH ×3 (11:22→19:09)
[2024-09-01 11:32] LABS: Glucose - Point of Care 211 mg/dl (70-99)
[2024-09-01 11:38] VITALS: BP 114/71
[2024-09-01] MEDS: LASIX 40 MG PO (13:28)
[2024-09-01] MEDS: NOVOLOG FLEXPEN-LOW RESISTANCE 2 UNITS SC (13:28)
[2024-09-01 15:15] VITALS: BP 131/69
[2024-09-01 17:04] LABS: Glucose - Point of Care 164 mg/dl (70-99)
[2024-09-01 21:40] LABS: Glucose - Point of Care 294 mg/dl (70-99)
[2024-09-01] MEDS: LIPITOR 20 MG PO (22:00)
[2024-09-01] MEDS: ZOLOFT 50 MG PO (22:00)
[2024-09-01] MEDS: MELATONIN 3 MG PO (22:00)
[2024-09-01 23:38] VITALS: BP 102/60
[2024-09-02 06:00] VITALS: BMI 30.9
[2024-09-02] MEDS: VENTOLIN NEBULES 2.5 MG INH ×2 (07:17→11:19)
--- NOTE | 2024-09-02 07:20 | W.PN.HOSP.TC ---
Today's Communication/Plan
-
discharge
Assessment / Plan
Assessment / Plan
Physical Exam
General: No pallor, cyanosis, or jaundice.
HEENT: Throat clear. PERRLA Normocephalic atraumatic
NECK: Supple. No JVD Carotid Bruits
RESPIRATORY: clear to auscultation b/l
CVS: S1, S2 sinus tachy. No murmur, rub or gallop.
ABDOMEN: Soft, non-tender. No distension. BS+/normal.
EXTREMITIES: No peripheral cyanosis or edema. Lower ext tattoo noted
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
IMPRESSION:
54F HTN GERD NIDDM Obesity depression WAI on CPAP hx SVT s/p ablation p/w progression exertional dyspnea coughing general malaise chills appetite loss for the past few days. Prior to worsening of symptoms patient was diagnosed with Flu approx 3
weeks ago. Sinus Tachy Mild Leukocytosis CXR concerning for multifocal pneumonia. No significant hypotension or lactic acidosis. Currently COVID Flu neg. Admitted for further management/treatment Pneumonia.
PLAN:
#Pneumonia due to Haemophilus influenzae with beta lactamase (sputum culture positive)
completed 3 days IV ceftriaxone azithromycin, de-escalated to Augmentin planned for total 5 days abx (09/02/24 last day for antibiotics)
scheduled mucinex and prn robitussin, tessalon
cepacol prn sore throat
trend wbc, monitor temp
follow blood and sputum cultures
PRN Tylenol, Ibuprofen
incentive spirometer VEST therapy
Duoneb R QID and prn (eventual dc nebulizer treatments and switch to Ventolin inhaler prn)
Home Oxygen Assessment appreciated no need
Likely Iatrogenic Fluid overload
-crackles on auscultation resolved following Lasix
#Hyponatremia
likely d/t poor oral intake, potentially exacerbated by home HCTZ and Sertraline
resolved with IVF NS
patient tolerating diet, IVF completed
hyponatremia high 120s later re-occurred
Fluid restriction loosened with improvement in Na
HTN
hx SVT s/p ablation
monitor on Telemetry
HCTZ on hold as above, bp well controlled without, will discontinue on discharge
home Lisinopril and metoprolol with holding parameters
NIDDM
home metformin held d/t poor appetite ok to resume on discharge.
sliding scale
updated A1c 7.7
monitor and titrate insulin regimen as necessary.
WAI on CPAP
Obesity
cont CPAP bedtime
Depression/Insomnia
cont home Sertraline
melatonin bedtime
GERD
cont PPI
Hypomagnesemia
monitor and replete as necessary
PT/OT appreciated no needs
DVT ppx scd
Full Code
Medically stable for discharge home with outpatient follow up recommendations.
Total Time Preparing Discharge ___40____ minutes including examination of the patient, summary of the hospital stay, instructions for continuing care to all relevant caregivers; and preparation of discharge records, prescriptions, and referral
forms if necessary.
Anticipated Discharge: Today
Subjective/Interval History
-
Date of Service: September 02, 2024
Seen and examined at bedside in no acute distress sitting up comfortably in chair. Reports overall feeling well. Denies new acute issues at this time. Eager to go home.
Objective Data
-
Labs:
Laboratory Results
09/02/24
05:53
WBC Pending
Hgb Pending
Hct Pending
Plt Count Pending
Sodium Pending
Potassium Pending
Chloride Pending
Carbon Dioxide Pending
BUN Pending
Creatinine Pending
Glucose Pending
Calcium Pending
Vital Signs:
Vital Signs
Temp Pulse Resp BP Pulse Ox
98.4 F 63 20 102/60 94
09/01/24 23:38 09/01/24 23:38 09/01/24 23:38 09/01/24 23:38 09/01/24 23:38
I&O
09/01/24 09/02/24 09/03/24
06:59 06:59 06:59
Intake Total 1310 / 1310 820 / 820
Balance 1310 / 1310 820 / 820
[2024-09-02 07:57] VITALS: BP 141/82
[2024-09-02 08:05] LABS: Hematocrit 27.3 % (37.0-47.0); Hemoglobin 8.6 g/dL (12.0-16.0); Mean Corp Hgb Conc. 31.5 g/dL (33.0-37.0); Mean Corpuscular Hgb 24.4 pg (27.0-31.0); Mean Corpuscular Volume 77.3 fL (81.0-99.0); Mean Platelet Volume 9.1 fL (7.4-10.4); Platelet Count 476 10^3/uL (130-400); Red Blood Cell Count 3.53 10^6/uL (4.20-5.40); Red Cell Dist. Width 18.4 % (11.5-14.5); White Blood Cell Count 7.4 10^3/uL (4.8-10.8)
[2024-09-02 08:10] LABS: Glucose - Point of Care 195 mg/dl (70-99)
[2024-09-02] MEDS: NOVOLOG FLEXPEN-LOW RESISTANCE 1 UNITS SC (08:30)
[2024-09-02] MEDS: PEPCID 20 MG PO (08:31)
[2024-09-02] MEDS: PROTONIX 40 MG PO (08:31)
[2024-09-02] MEDS: MUCINEX 600 MG PO (08:31)
[2024-09-02] MEDS: ZESTRIL 10 MG PO (08:31)
[2024-09-02] MEDS: LOPRESSOR 25 MG PO (08:31)
[2024-09-02] MEDS: AUGMENTIN 875 MG/125 MG 1 TABLET PO ×2 (08:31→17:30)
[2024-09-02 08:38] LABS: Blood Urea Nitrogen 8 mg/dl (7-17); Calcium 8.3 mg/dl (8.4-10.2); Carbon Dioxide 32 mmol/L (22-30); Chloride 95 mmol/L (98-107); Estimated Creatinine Clearance 105 ml/min; Glucose 190 mg/dl (70-99); Magnesium 1.8 mg/dl (1.6-2.3); Phosphorus 3.1 mg/dl (2.5-4.5); Potassium 4.2 mmol/L (3.5-5.1); Sodium 134 mmol/L (135-145); eGFR > 60.00
[2024-09-02 11:30] LABS: Glucose - Point of Care 235 mg/dl (70-99)
[2024-09-02] MEDS: NOVOLOG FLEXPEN-LOW RESISTANCE 2 UNITS SC ×2 (11:33→16:23)
[2024-09-02] MEDS: ROBITUSSIN 200 MG PO (14:08)
[2024-09-02 15:49] VITALS: BP 125/70
[2024-09-02 16:21] LABS: Glucose - Point of Care 227 mg/dl (70-99)
--- NOTE | 2024-09-02 17:21 | W.DCSUMMARY ---
Discharge Summary
Discharge Data
Date of Admission: 08/29/24
Date of Discharge: 09/02/24
-
Pending Results: Yes
Additional Pending Results:
Official blood culture results
Discharge Plan
-
Patient Disposition: Home (Routine Discharge)
Discharge Diagnosis/Procedures: Pneumonia due to Haemophilus influenzae
Hyponatremia
Anemia
Thrombocytosis
Hypertension
Diabetes
Obstructive Sleep Apnea
Obesity
Acute Hypoxic Insufficiency likely due to Pneumonia since resolved
Condition: Fair
Diet: Diabetic, Carb Controlled and Restrict fluids to 64 oz
Additional Diets: Continue fluid restriction (for Hyponatremia) for now. Discuss with primary care provider in follow up when fluid restriction can be discontinued.
Activity: As tolerated
Driving Restrictions: As prior to admission
Bathing Restrictions: None
Blood Work: Please repeat CBC and BMP with primary care provider in 1 week of discharge.
Others Tests: Please repeat Chest X-ray with primary care provider in 1 month of discharge.
Follow up with Pulmonology for formal pulmonary function tests in 2-4 weeks of discharge.
Activity Restrictions/Additional Instructions:
Please follow up with primary care provider in 1 week of discharge and Pulmonology in 2-4 weeks of discharge.
combination lisinopril-hydrochlorothiazide medication has been discontinued in favor of prescribing Lisinopril alone for treatment hypertension. Hydrochlorothiazide can cause hyponatremia so medication was discontinued. Also, blood pressure was
well controlled during your stay, without hydrochlorothiazide. Please follow up with primary care provider and/or other healthcare provider involved in your care before considering to resume Hydrochlorothiazide.
Please take medications as prescribed/recommended and follow up with primary care provider and/or other healthcare provider involved in your care for refills and/or further adjustment to your medication regimen as necessary.
Referrals:
Chet Vasquez MD [Active] - in two to four weeks
Zenaida Hyde MD [Family Provider] - in one week
Prescriptions:
New
lisinopril 10 mg tablet
10 mg PO DAILY Qty: 30 0RF
Continued
atorvastatin 20 MG tablet
20 mg PO HS
metformin 1,000 MG tablet
1,000 mg PO BID
famotidine 20 mg tablet
20 mg PO BID 4 Days Qty: 8 0RF
ondansetron 4 mg tablet,disintegrating
4 mg PO Q8HPRN PRN (Reason: nausea,vomitting)
loperamide 2 mg Tablet
2 mg PO QIDPRN PRN (Reason: diarrhea)
omeprazole 40 mg Capsule,Delayed Release(Dr/Ec)
40 mg PO DAILY
albuterol sulfate 90 mcg/actuation Hfa Aerosol Inhaler
1 puff INHALATION R Q6HPRN PRN (Reason: sob)
sertraline 50 mg Tablet
50 mg PO HS
metoprolol tartrate 25 mg Tablet
25 mg PO BID
guaifenesin [Mucinex] 600 mg Tablet Extended Release 12hr
600 mg PO [id number] PRN (Reason: cough)
Ozempic 0.25 mg or 0.5 mg (2 mg/3 mL) pen injector
0.25 mg SC MO
ibuprofen 600 mg tablet
600 mg PO Q6HPRN PRN (Reason: Pain)
Discontinued
lisinopril-hydrochlorothiazide 10-12.5 mg Tablet
1 tab PO DAILY
Discharge Orders:
Discharge Patient (As Directed); Ordered 09/02/24
Ordered By: Rupal Paez
Discharge Date and Time
Print Language: SPANISH
== END 2024-09-02 17:52 | disposition home or self-care (01) | DRG 194 ==
LOC: 4 EAST ACU 14:55
PROVIDERS: Emergency Medicine; ADMITTING PHYSICIAN Internal Medicine; EMERGENCY PHYSICIAN Emergency Medicine; FAMILY PHYSICIAN Family Medicine
PROC: 5A09357 Assistance with Respiratory Ventilation, Less than 24 Consecutive Hours, Continuous Positive Airway Pressure (ICD-10-PCS; 2024-08-29)
DX: J14 Pneumonia due to Hemophilus influenzae (principal); E87.1 Hypo-osmolality and hyponatremia; J10.08 Influenza due to other identified influenza virus with other specified pneumonia; D64.9 Anemia, unspecified; D75.839 Thrombocytosis, unspecified; I10 Essential (primary) hypertension; G47.33 Obstructive sleep apnea (adult) (pediatric); E66.9 Obesity, unspecified; Z68.30 Body mass index [BMI] 30.0-30.9, adult; E11.9 Type 2 diabetes mellitus without complications; R09.02 Hypoxemia; Z79.84 Long term (current) use of oral hypoglycemic drugs; Z79.899 Other long term (current) drug therapy; Z87.891 Personal history of nicotine dependence; Z79.85 Long-term (current) use of injectable non-insulin antidiabetic drugs; K21.9 Gastro-esophageal reflux disease without esophagitis; F32.A Depression, unspecified; G47.00 Insomnia, unspecified; Z82.49 Family history of ischemic heart disease and other diseases of the circulatory system; E83.42 Hypomagnesemia; Z11.52 Encounter for screening for COVID-19
CPT/HCPCS: 71046; 80048; 82962; 83036; 83605; 83735; 83880; 84100; 85025; 85027; 87040; 87070; 87077; 87185; 87205; 87449; 87502; 87811; 87899; 93005; 93306; 94640; 94660; 94669; 96361; 96365; 96375; 97162; 97166; 99285